=== PATIENT | female | born 1935 | race Caucasian/White ===

== ENCOUNTER 2016-10-07 18:06 | Inpatient (IN) | payer MEDICARE, BC ==
[~2016-10-07] VITALS: Ht 162.6 cm; Wt 76.7 kg
--- NOTE | ~2016-10-07 | CON ---
PATIENT'S NAME: RUBEN GIBBS [facility] AGE: 81 Y [address] ROOM: [place] [id number] LOCATION: GPCU ADMIT DATE: 10/07/2016 Consultation DISCHARGE DATE: FAMILY PHYSICIAN: PHYSICIAN, UNKNOWN ATTENDING PHYSICIAN: KELLY RAJPUT REFERRING PHYSICIAN: Tobi Lora MD CHIEF COMPLAINT: Chest pain. HISTORY OF PRESENT ILLNESS: This is an 81-year-old female who says that since last week the patient has been having bilateral jaw pain, she rated about 8/10, sometimes with exertion, sometimes at rest and would radiate to both shoulders down to both elbows and also to the substernal area. She graded about 8/10 intensity, on and off, associated with shortness of breath sometimes at rest and sometimes on exertion. These symptoms have been getting worse and today, the patient came to the ER for evaluation. Upon arrival, EKG showed ST-elevation in anteroseptal lateral leads and the patient was taken to the cardiac labor commissioner and already got one stent of drug-eluting stent to the LAD and currently is post stent and is in the PCU, doing well, without any chest pain or any complaints. Vital signs within normal limits. REVIEW OF SYSTEMS: As mentioned in the history of present illness. All other systems were reviewed and were negative except those mentioned in the history of present illness. PAST MEDICAL HISTORY: 1. Tachy-jose r syndrome, status post pacemaker implantation roughly 15 years ago. 2. Coronary artery disease, status post one drug-eluting stent placed in the past, roughly 15 years ago. 3. Hypertension. 4. Hyperlipidemia. ALLERGIES: SULFA WHICH CAUSES GI UPSET. HOME MEDICATIONS: Currently is being reconciled. PAST SURGICAL HISTORY: 1. Status post hysterectomy. 2. Status post cholecystectomy. 3. Status post hernia repair. PATIENT'S NAME: RUBEN GIBBS [facility] AGE: 81 Y [address] ROOM: [address] [address] LOCATION: GPCU ADMIT DATE: 10/07/2016 Consultation DISCHARGE DATE: FAMILY PHYSICIAN: PHYSICIAN, UNKNOWN ATTENDING PHYSICIAN: KELLY RAJPUT 4. Status post carpal tunnel syndrome repair. 5. Status post pacemaker implantation. 6. Status post one drug-eluting stent to the heart in the past. FAMILY HISTORY: Father at old age and he had a stroke and also hypertension. Mother also from old age, she also had stroke and also hypertension. SOCIAL HISTORY: The patient denies any alcohol or illegal drug or cigarette use. VITAL SIGNS: At the time of my dictation, temperature 98, blood pressure 130/80, heart rate 80, respirations 12, and saturation 99% on 1 L nasal cannula. GENERAL APPEARANCE: Alert and oriented x3, in no acute distress. HEENT: Pupils are equally round and reactive to light. Extraocular muscles are intact. Anicteric sclerae. Nasal turbinates are normal bilaterally. Moist oral mucosa. CARDIOVASCULAR: Regular rate and rhythm. Normal S1, S2. No murmur, no rubs, no gallops. RESPIRATORY: Clear to auscultation. No rales. No rhonchi. No crackles. No wheezing. ABDOMEN: Soft, nontender, and nondistended. Normal bowel sounds. No hepatosplenomegaly. EXTREMITIES: No edema in upper or lower extremities. NEUROLOGIC: Grossly nonfocal. SKIN: No ulcer, no rash, no cyanosis. MUSCULOSKELETAL: No joint pain. No muscle pain. Range of motion intact. LABORATORY DATA: CPK 908, troponin 50, CK-MB 72.2. All other labs are currently pending. IMAGING STUDIES: EKG on admission on October 07, 2016, at [address]-elevation in anteroseptal lateral leads, heart rate 85, sinus rhythm, QRS 84 msec, QTc 460 msec, and VA 184 msec. ASSESSMENT/PLAN: 1. ST elevation myocardial infarction in anteroseptal lateral leads: The patient is status post one drug-eluting stent to the left anterior descending artery. Currently, she is doing well, in the PCU. Continue current medication with aspirin, beta wendy, ARB, Lipitor, aspirin, Plavix, and abciximab, and nitroglycerin drip. Cycle cardiac enzymes. Repeat EKG in the morning and also repeat labs in the morning as well. Keep the potassium more than 4 and magnesium magnesium more than 2. PATIENT'S NAME: RUBEN GIBBS [facility] AGE: 81 Y [address] ROOM: [place] [address] LOCATION: GPCU ADMIT DATE: 10/07/2016 Consultation DISCHARGE DATE: FAMILY PHYSICIAN: PHYSICIAN, UNKNOWN ATTENDING PHYSICIAN: KELLY RAJPUT Further plan depends on clinical course. 2. Hypertension: Continue current medication as mentioned before. However, I will hold the amlodipine which is one of her home medications for now to give more room to the other blood pressure medication. Can always resume if the blood pressure tolerates. 3. History of hyperlipidemia: Currently, she is on Lipitor. 4. Coronary artery disease, status post 1 stent placed in the past and status post permanent pacemaker implantation for tachy-jose r syndrome 15 years ago. No active issue. The patient is status post one drug-eluting stent to the LAD. 5. Deep venous thrombosis prophylaxis: The patient is on abciximab. Time spent in care on the day of consultation, 35 minutes including chart review, interviewing the patient, examining the patient, and addressing all the questions and concerns the patient and family members had. I also went over the plan of care in detail with the patient and the nurse and the patient's family numbers. Half of the time was spent in chart review, interviewing, and physical examination. The other half of the total time spent was in counseling including addressing all the questions and concerns the patient and the family members had. Further plan will depend on clinical course. KELLY RAJPUT MD CC/jasminal /[id number] d: 10/08/16 0230 t: 10/16/16 0710, CONSULTATION REPORT
--- NOTE | ~2016-10-07 | CATH ---
Cardiac Diagnostic + PCI Report Demographics Patient Name BERNIE DE LA CRUZ Gender Female Date of 1935 Age 81 year(s) Patient Number [id number] Date of Study 10/07/2016 Visit Number [id number] Room Number G6316 [place] [id number] Ht 162.56 cm Wt 73.9 kg Referring Geno Britton MD Primary Physician Physician Performing Geno Britton MD Secondary Physician Physician Diagnostic Geno Britton MD Assisting Physician Physician Interventional Geno Britton MD Physician Technical Support Consultant Physician Findings and Conclusions Diagnostic Findings and Conclusion 1 vessel CAD ISR mid LAD Diagnostic Recommendations PCI LAD Interventional Findings and Conclusion 0.014 Prowater 2.75x15 Emerge 2.5x28 Promus to 2.6 with 0% residual Interventional Recommendations DAPT x 1 year Routine post perclose Risk factor modification Procedure Description The patient was brought to the diagnostic cardiac catheterization-EP laboratory in the fasting, non-sedated state. Informed consent was obtained in the written and verbal form after the risks and benefits were explained. The patient had no further questions and agreed to proceed. The planned puncture-incision site(s) were shaved and prepped with ChloraPrep and draped in the usual sterile manner. Conscious sedation, supplemental oxygen, and pain control medications were delivered by a registered nurse under physician guidance. Surface ECG rhythm, blood pressure measurement, and pulse oximetry were monitored throughout the procedure. Arterial access. The access site was infiltrated with lidocaine. The vessel was entered with the Seldinger technique. A sheath was advanced into the vessel and used for catheter placement. Selective left coronary angiography. A catheter was advanced into the left coronary vessel ostium under Fluoroscopic guidance. Contrast was injected by hand. Images were obtained in multiple projections. Selective right coronary angiography. A catheter was advanced into the right coronary vessel ostium under fluoroscopic guidance. Contrast was injected by hand. Images were obtained in multiple projections. Angioplasty and Stent Placement: A guiding catheter was used to intubate the vessel. A 0.14 wire was then used to cross the lesion. A balloon catheter was placed across the lesion and inflated. The balloon catheter was then removed. A Drug Eluting Stent was placed and inflated. Post placement angiograms were performed. Arterial artery hemostasis was achieved. The patient was transferred to a regular nursing floor via cart accompanied by a nurse. The patient left the laboratory in stable condition. Diagnostic Cath Status: Emergency Interventional Cath Status: Emergency Procedure Procedure Type Diagnostic procedure:Angiography:, Coronary Angios PCI procedure:Drug Eluting Coronary Stent:, LAD Indications: Abnormal ECG and Elevated troponin. Angiographic Findings Dominance: Right Cardiac Arteries and Lesion Findings LMCA: Normal (0% Stenosis).Large ok LAD: LAD medium. 100% instent restenosis Diag 1 medium Ariana is a previous stent on Mid LAD Mid subsection showing occlusion. Lesion on Mid LAD: Proximal subsection.100% stenosis 28 mm length reduced to 0%. Pre procedure TRUDY 0 flow was noted. Post Procedure TRUDY III flow was present. The guidewire cross was successful.The lesion was diagnosed as a high risk lesion.Culprit lesion. The lesion was previously treated with the following techniques: drug eluting stent. This is in-stentrestenosis. Devices used - Prowater Wire .014 x 180. Number of passes: 1. - Emerge Balloon 2.75 x 15. 5 inflation(s) to a max pressure of: 14 chey. - Promus Premier 2.5 x 28 Stent. 2 inflation(s) to a max pressure of: 18 chey. Lesion on Mid LAD: Distal subsection.80% stenosis reduced to 0%. Pre procedure TRUDY 0 flow was noted. Post Procedure TRUDY III flow was present. The guidewire cross was successful.The lesion was diagnosed as a high risk lesion.Culprit lesion. LCx: Normal (0% Stenosis).Circ medium ok OM 1 small, OM 2 large with proximal plaque RCA: RCA large with diffuse plaque PDA medium with mild plaque PL medium with mild plaque Coronary Tree Procedure Data Procedure Date Date: 10/07/2016Start: 07:16 PMEnd: 08:03 PM Entry Locations - Retrograde Percutaneous access was performed through the Right Femoral artery (Primary location). A 6 Fr sheath was inserted. Hemostasis was successfully obtained using Perclose ProGlide ([place]). Closure Comments: Perclose deployed by Anselmo. Procedure Medications Order and Administration + + + + + !Time !Medication !Dosage !Route ! + + + + + !10/07/2016 07:18 PM !Potassium Chloride !40 meq !I.V. ! + + + + + !10/07/2016 07:22 PM !Heparin (ACC_3) !2000 units !I.V. bolus ! + + + + + !10/07/2016 07:22 PM !Heparin (ACC_3) ! !I.V. drip ! + + + + + !10/07/2016 07:27 PM !Reopro (Abciximab) (ACC_7) !18.4 mg !I.V. bolus ! + + + + + !10/07/2016 07:28 PM !Reopro (Abciximab) (ACC_7) !10 mcg/min !I.V. bolus ! + + + + + !10/07/2016 07:31 PM !Nipride !50 mcg !I.C. ! + + + + + !10/07/2016 07:36 PM !Nipride !100 mcg !I.C. ! + + + + + !10/07/2016 07:37 PM !Nipride !100 mcg !I.C. ! + + + + + !10/07/2016 07:39 PM !Nipride !100 mcg !I.C. ! + + + + + !10/07/2016 07:40 PM !Fentanyl !25 mcg !I.V. ! + + + + + !10/07/2016 07:47 PM !Nipride !100 mcg !I.C. ! + + + + 10/07/2016 07:49 PM !Nitroglycerin !5 mcg/min !I.V. drip ! + + + + 10/07/2016 07:49 PM !Plavix (ACC_8) !150 mg !P.O. ! + + + + + 10/07/2016 07:51 PM !Oxygen ! !NC ! + + + + + 10/07/2016 07:57 PM !Fentanyl !25 mcg !I.V. ! + + + + + Devices Used - A6 Fr. BS JL 4 Diag. Catheterwas used for:Left coronary angiography. - A6 Fr. BS JR 4 Diag. Catheterwas used for:Right coronary angiography. - A6 Fr. XBLAD 3.5 Guide Catheterwas used for:LAD Intervention. Contrast Material - Isovue 116296 ml Fluoroscopy Time: Diagnostic: 13:24 minutes. Total: 13:24 minutes. Fluoroscopy Dose: Diagnostic: 2623 mGy. Total: 2623 mGy. Estimated Blood Loss: 5 ml. Additional [facility] PCI Information PCI Indication:Immediate PCI for STEMI. Medical History Performed Procedures and Imaging Results - No [facility] stress or imaging studies were performed. Allergies - Sulfa. - Other:(Lactose, sulfonamidos). - Other:(Eggs, [place]). Risk Factors The patient risk factors include:prior PCI on 11/03/2002;hypertension, family history of premature CAD, last creatinine: 0.9 mg/dl, creatinine clearance: 57.19 ml/min and dyslipidemia. Admission Data Admission Date: 10/07/2016 Admission Time: 07:01 PM Admit Source: [place] acute care facility Insurance Payors: Medicare. Admission Medications + +------+------+ + + + + !Medication !Dosage!Times !Last !Last !Administered !Comments ! ! ! !Per !Delivery !Delivery ! ! ! ! ! !Day !Date !Time ! ! ! + +------+------+ + + + + !ANGELITA ! ! ! ! !Yes ! ! !Inhibitor ! ! ! ! ! ! ! !(any) ! ! ! ! ! ! ! + +------+------+ + + + + !ARB (any) ! ! ! ! !Yes ! ! + +------+------+ + + + + !Beta Sylvie! ! ! ! !Yes ! ! !(any) ! ! ! ! ! ! ! + +------+------+ + + + + !Statin (any)! ! ! ! !Yes ! ! + +------+------+ + + + + Clinical Evaluation Leading to Procedure - The patient's CAD presentation was assessed as: STEMI.The symptom onset was first noted on 10/05/2016 12:01 AM(time was estimated). - Anti-anginal medications were prescribed during the past two weeks. The medication is: Beta Blockers. Hemodynamics Condition: Rest Estimated: Heart Rate: 79 bpm Pressures (mmHg) +-----+ + !Site !Pressure ! +-----+ + !AO !132/69 (96) ! +-----+ + Shunts Oxygen Values O2 Capacity 213.52 Discharge Data Discharge Date: 10/09/2016 Hospital Status: Inpatient Signatures dtt: Tobi Lora (cardio) dtd: 10/07/161915 Physician Self Edit
--- NOTE | ~2016-10-07 | ECHO ---
Transthoracic Echocardiography Report (TTE) Demographics Patient Name RUBEN GIBBS Date of Study 10/09/2016 Patient Number [id number] Visit Number [id number] Date of 1935 Room Number G6316 Gender Female Number Age 81 year(s) Referring Hari Industrial Nurse Xochitl Dong RVT Physician Yudith Rodríguez MD Physician Interpreting Geno Brittno MD Equal Employment Opportunity Officer Physician Supervising Ordering Physician Hari Zurita MD/MLP Nurse Stress Pediatric Cns Conclusions Contractility Score Summary Normal Left Ventricular contractility was noted. Summary Technically difficult exam. The estimated left ventricular ejection fraction is 65-70%. Moderate concentric left ventricular hypertrophy. The right atrium is mildly dilated. IVC not visualized due to poor subcostal window. Mild mitral annular calcification. Mild mitral regurgitation by color Doppler. Trivial tricuspid regurgitation by color Doppler. Trivial pulmonic valve regurgitation by color Doppler. Possible trivial global pericardial effusion. Procedure Type of Study TTE procedure:2D Echocardiogram. Procedure Date Date: 10/09/2016 Start: 08:49 AM Study Location: Inpatient Portable Technical Quality: Poor visualization due to poor acoustical window. Indications:Chest pain. Appropriate Use Criteria: 9 Patient Status: Routine HR: 73 bpm BP: 124/60 mmHg Allergies - Sulfa. - Other:(Lactose, sulfonamidos). - Other:(Eggs, [place]). M-Mode/2D Measurements LV Diastolic Dimension: 3.63 cm LV Systolic Dimension: 1.94 cm LV Septum Diastolic: 2.14 cm LV PW Diastolic: 1.55 cm AO Root Dimension: 2.1 cm Cardiac Output: 4.72 l/min AV Cusp Separation: 1.4 cm RV Diastolic Dimension: 3.02 cm LVOT: 2 cm LVOT VTI: 20.6 cm LV Stroke volume: 64.68 ml TDI-S': 16.1 cm/s Doppler Measurements AV Peak Velocity: 1.48 m/s MV Peak E-Wave: 0.6 m/s AV Peak Gradient: 8.76 mmHg MV Peak A-Wave: 0.89 m/s AV Mean Gradient: 4 mmHg MV E/A Ratio: 0.67 LVOT Peak Velocity: 1.04 m/s MV P1/2t: 52 msec TR Gradient:18.66 mmHg PV Peak Velocity: 0.92 m/s PV Peak Gradient: 3.39 mmHg E' Septal Velocity: 0.05 m/s A' Septal Velocity: 0.1 m/s E' Lateral Velocity: 0.06 m/s A' Lateral Velocity: 0.11 m/s Findings Left Ventricle Moderate concentric left ventricular hypertrophy. Mild to moderate concentric left ventricular hypertrophy. Right Ventricle Normal right ventricle structure and function. Left Atrium Normal left atrial size. Right Atrium The right atrium is mildly dilated. IVC not visualized due to poor subcostal window. Mitral Valve Mild mitral annular calcification. Mild mitral regurgitation by color Doppler. Aortic Valve Normal aortic valve structure and function. Tricuspid Valve Trivial tricuspid regurgitation by color Doppler. Pulmonic Valve Trivial pulmonic valve regurgitation by color Doppler. Pericardial Effusion No evidence of pericardial effusion. Miscellaneous Visualized portions of the aortic root and ascending aorta appear normal in size. Pleural Effusion No evidence of pleural effusion. Contractility Score LV regional wall motion:(0-Non visualized 1-Normal 2-Hypokinesis 3-Akinesis 4-Dyskinesis 5-Aneurysm) Signature dtt: Tobi Lora (cardio) dtd: 10/09/16 0849 Physician Self Edit
[2016-10-07] MEDS ORDERED: ALPHAGAN P OPHTH (21:42)
[2016-10-07] MEDS ORDERED: NORVASC2.5 MG PO (21:44)
[2016-10-07] MEDS ORDERED: TOPROL XL100 MG PO ×2 (21:45→21:46)
[2016-10-07] MEDS ORDERED: LIPITOR20 M1 PO (21:45)
[2016-10-07] MEDS ORDERED: OCUVITE SOFTGE1 EACH PO (21:47)
[2016-10-07] MEDS ORDERED: VALSARTAN-HCTZ1 EAC2 PO (21:48)
[2016-10-07] MEDS ORDERED: XALATAN2.5 ML OPHTH (21:49)
[2016-10-07] MEDS ORDERED: VIACTIV SOFT C1 EACH PO (21:49)
[2016-10-07] MEDS ORDERED: ALEVE SINUS PO (21:51)
[2016-10-07 23:50] LABS: BASOPHIL % 0.3 %; EOSINOPHIL % 0.1 %; HEMATOCRIT 42.9 % (30.0-46.0); HEMOGLOBIN 14.3 g/dL (10.0-15.0); IMMATURE GRANULOCYTE % 0.3 %; LYMPHOCYTE # 2.2 K/uL (0.8-4.0); LYMPHOCYTE % 16.6 %; MCH 30.5 pg (27.0-34.0); MCHC 33.3 gm/dL (32.0-36.5); MCV 91.5 fl (83.0-98.0); MONOCYTE # 1.1 K/uL (0.0-1.0); MONOCYTE % 8.5 %; MPV 11.9 fl (9.4-12.4); NEUTROPHIL # (ANC) 9.6 K/uL (1.8-7.8); NEUTROPHIL % 74.2 %; NRBC % 0 /100WBC (0-0.00); RBC 4.69 M/uL (3.00-5.00); RDW-CV 13.8 % (11.9-14.6)
[2016-10-07 23:51] LABS: PLATELET COUNT 134 K/uL (150-450)
[2016-10-07 23:58] LABS: INR - (THERAPEUTIC) 1.06 (0.92-1.07); PROTIME 11.1 SECONDS (9.8-11.4)
[2016-10-08 00:03] LABS: ALBUMIN 3.1 gm/dL (3.5-5.0); ANION GAP 15.5 (10.0-19.0); CALCIUM 8.3 mg/dL (8.5-10.5); CREATININE 0.9 mg/dL (0.5-1.1); MAGNESIUM 2.1 mg/dL (1.8-2.6); POTASSIUM 5.5 mMol/L (3.7-5.1); TOTAL BILIRUBIN 1.3 mg/dL (0.0-1.5); TOTAL PROTEIN 6.4 g/dL (6.0-8.4)
[2016-10-08 02:38] LABS: BASOPHIL % 0.4 %; EOSINOPHIL % 0.3 %; HEMATOCRIT 39.1 % (30.0-46.0); HEMOGLOBIN 13.3 g/dL (10.0-15.0); IMMATURE GRANULOCYTE % 0.4 %; LYMPHOCYTE % 17.8 %; MCH 30.7 pg (27.0-34.0); MCV 90.3 fl (83.0-98.0); MONOCYTE # 1.3 K/uL (0.0-1.0); MONOCYTE % 11.9 %; MPV 11.5 fl (9.4-12.4); NEUTROPHIL # (ANC) 7.7 K/uL (1.8-7.8); NEUTROPHIL % 69.2 %; NRBC % 0 /100WBC (0-0.00); PLATELET COUNT 131 K/uL (150-450); RBC 4.33 M/uL (3.00-5.00); RDW-CV 13.7 % (11.9-14.6); WBC 11.1 K/uL (4.0-11.0)
[2016-10-08 03:03] LABS: ALBUMIN 2.7 gm/dL (3.5-5.0); ALK PHOS 73 IU/L (33-138); ALT 43 IU/L (12-78); ANION GAP 14.8 (10.0-19.0); AST 181 IU/L (10-40); BLOOD UREA NITROGEN 21 mg/dL (6-24); CALCIUM 8.2 mg/dL (8.5-10.5); CHLORIDE 112 mMol/L (96-110); CO2 19 mMol/L (22-32); CREATININE 0.7 mg/dL (0.5-1.1); ESTIMATED GFR (MDRD EQUATION) > 60; SODIUM 142 mMol/L (135-145); TOTAL BILIRUBIN 1.2 mg/dL (0.0-1.5); TOTAL PROTEIN 5.7 g/dL (6.0-8.4)
[2016-10-08 03:04] LABS: POTASSIUM 3.8 mMol/L (3.7-5.1)
--- NOTE | 2016-10-08 04:55 | NUR ---
Significant Event: Patient is alert/oriented x3. Vital signs are stable. On nitro drip at 5 mcg/hr. Reopro at 10 mcg, to be turned off at 0730. Stent to LAD, was 100% occluded. Right groin dressed with gauze and tegaderm. Gauze is saturated since site oozed due to Reopro drip but has not oozed past the gauze. Site has been soft and non-tender throughout the night. CSM is WNL. Patient has denied any pain/discomfort. Pena in place with 850 mL UOP. Cardiac enzymes trending down. Follow up: Continue to monitor per plan of care. EKG this AM.
--- NOTE | 2016-10-08 17:12 | NUR ---
Significant Event: Alert and oriented X 3. Room air. SBP 100's and 110's. HR 60's and 70's. Up with 1 assist. Ambulated jennings with TA X 1. Pena pulled with 800 ml out. Denies any pain. Heart cath radial approach. Dressing clean dry and intact. Surrounding area soft no bruising. Pleasant and cooperative with cares. Follow up: EKG and Echo tomorrow morning.
--- NOTE | 2016-10-09 04:41 | NUR ---
Significant events: Pt A/Ox3. VSS. No complaints of pain. R) groin heart cath site CDI. Up in jennings x1. Possible DC today after echo and ekg.
[2016-10-09 04:55] LABS: BASOPHIL # 0.1 K/uL (0.0-0.2); BASOPHIL % 0.8 %; EOSINOPHIL # 0.2 K/uL (0.0-0.5); EOSINOPHIL % 2.5 %; HEMATOCRIT 38.8 % (30.0-46.0); HEMOGLOBIN 12.9 g/dL (10.0-15.0); IMMATURE GRANULOCYTE % 0.3 %; LYMPHOCYTE % 22.7 %; MCH 30.7 pg (27.0-34.0); MCHC 33.2 gm/dL (32.0-36.5); MCV 92.4 fl (83.0-98.0); MONOCYTE # 1.1 K/uL (0.0-1.0); MONOCYTE % 11.9 %; MPV 11.2 fl (9.4-12.4); NEUTROPHIL # (ANC) 5.5 K/uL (1.8-7.8); NEUTROPHIL % 61.8 %; NRBC % 0 /100WBC (0-0.00); PLATELET COUNT 145 K/uL (150-450); RDW-CV 13.7 % (11.9-14.6); WBC 8.9 K/uL (4.0-11.0)
[2016-10-09 05:10] LABS: ANION GAP 13.7 (10.0-19.0); BLOOD UREA NITROGEN 19 mg/dL (6-24); CALCIUM 8.1 mg/dL (8.5-10.5); CHLORIDE 111 mMol/L (96-110); CO2 22 mMol/L (22-32); CREATININE 0.7 mg/dL (0.5-1.1); ESTIMATED GFR (MDRD EQUATION) > 60; MAGNESIUM 2.1 mg/dL (1.8-2.6); POTASSIUM 3.7 mMol/L (3.7-5.1); SODIUM 143 mMol/L (135-145)
[2016-10-09] MEDS ORDERED: ASPIRIN325 MG PO (14:14)
[2016-10-09] MEDS ORDERED: PLAVIX75 MG PO (14:17)
[2016-10-09] MEDS ORDERED: ISORDIL10 MG PO (14:18)
[2016-10-09] MEDS ORDERED: K-TAB 10MEQ10 MEQ PO (14:23)
--- NOTE | 2016-10-09 15:45 | NUR ---
Significant Event: PT A&O x3. VSS, on room air. Dressing changed to R)groin-bandaid applied. PT ambulates with SBA. Denies pain. Bilateral IV's dc'd. Echo done this AM. Dismissal instructions/prescriptions given to PT/spouse, voiced understanding. PT wheeled to front lobby and dismissed to home with family. Follow up:
--- NOTE | 2016-10-09 16:27 | NUR ---
Introduced self and role of care management to pt and her family. She states she is indepnedent with cares and hoping to go home today but waiting on the md. AT this time denies any post discharge needs.
== END 2016-10-09 15:30 | disposition disaster alternative care site (69) | DRG 247 ==
LOC: GPCU 18:06
PROVIDERS: Hospitalist; Internal Medicine Interventional Cardiology; ADMIT Internal Medicine
DX: I21.3 ST elevation (STEMI) myocardial infarction of unspecified site (principal); E78.5 Hyperlipidemia, unspecified; E87.6 Hypokalemia; Z23 Encounter for immunization; Z95.0 Presence of cardiac pacemaker; Z95.5 Presence of coronary angioplasty implant and graft
CPT/HCPCS: C1725; C1760; C1769; C1874; C1887; C9606; G0009; J0130; J0583; J1644; J2370; J3010; J3480; J7030; J7050; J7060

== ENCOUNTER → 2016-10-07 | Outpatient (CLI) | payer MEDICARE, OTHER, BC ==
[~2016-10-07] MED LIST: ALEVE SINUS PO; ALPHAGAN P OPHTH; ASPIRIN325 MG PO; ISORDIL10 MG PO; K-TAB 10MEQ10 MEQ PO; LIPITOR20 M1 PO; NORVASC2.5 MG PO; OCUVITE SOFTGE1 EACH PO; PLAVIX75 MG PO; TOPROL XL100 MG PO; VALSARTAN-HCTZ1 EAC2 PO; VIACTIV SOFT C1 EACH PO; XALATAN2.5 ML OPHTH
--- NOTE | ~2016-10-07 | CON ---
PATIENT'S NAME: RUBEN GIBBS [facility] AGE: 81 Y [address] ROOM: [place] [address] LOCATION: GAIR ADMIT DATE: 10/07/2016 Consultation DISCHARGE DATE: FAMILY PHYSICIAN: PHYSICIAN, UNKNOWN ATTENDING PHYSICIAN: SHREYA ELIZABETH DATE OF CONSULTATION: 10/07/2016 REASON FOR CONSULT: ST-elevation myocardial infarction. HISTORY OF PRESENT ILLNESS: This is an 81-year-old female, well known to Dr. Ponce with a history of coronary artery disease with stents placed to the LAD in 2002 as well as sick sinus syndrome post dual chamber [employer]. Rogerio pacemaker. She was last seen in the clinic in 2016 and had been doing very well until this past week when she started experiencing bilateral jaw discomfort with radiation down both upper arms with any kind of exertion. She was also complaining of shoulder pain and elbow discomfort. At times, she did experience some substernal discomfort. On the day of admission, she became extremely short of breath with exertion and had those symptoms as described above. She went to the emergency room in [place] and the initial EKG showed an ST elevation in the anterior septal region. She was then transferred to [facility] and underwent a left heart catheterization emergently with stents placed to the LAD. She had not had any problems with orthopnea or PND, but she had been more fatigued. She denied presyncope or syncopal episodes. PAST MEDICAL HISTORY: 1. Tachy-jose r syndrome, post dual chamber [employer]. Rogerio pacemaker. 2. Coronary artery disease. 3. Dyslipidemia. 4. Symptomatic venous insufficiency post left greater saphenous vein radiofrequency ablation and symptomatic PVCs. 5. Paroxysmal atrial fibrillation noted on the pacemaker report. 6. Elevated RVSP 37 mmHg. Last echo with normal overnight trend oximetry. 08/09/2015. PAST SURGICAL HISTORY: 1. Left heart catheterization, 11/03/2002, with PTCA stent to the LAD. 2. 03/09/2003, tachy-jose r syndrome post placement of dual chamber pacemaker St. Rogerio. 3. Left heart catheterization, 04/28/2003, patent stent to the LAD, small diagonal branch not amenable to PTCI. Medical therapy. 4. Abdominal aortogram with bilateral selective renal arteriography on 09/11/2005, showing single renal arteries without obstructive disease. PATIENT'S NAME: [facility]BS, [facility] AGE: 81 Y [address] ROOM: [place] [address] LOCATION: GAIR ADMIT DATE: 10/07/2016 Consultation DISCHARGE DATE: FAMILY PHYSICIAN: PHYSICIAN, UNKNOWN ATTENDING PHYSICIAN: SHREYA ELIZABETH 5. 03/06/2007, left heart catheterization. RCA 50%, LCX 40%, LAD 50% narrowing previously placed LAD stent. Medical therapy. 6. Left heart catheterization, 11/07/2009, one-vessel coronary artery disease, patent stent to the LAD. Medical therapy. 7. 11/20/2010, left heart catheterization, one-vessel coronary artery disease, patent stent noted to the left anterior descending artery, single renal artery supply bilaterally, elevated left ventricular end- diastolic pressures consistent with diastolic dysfunction. Medical therapy. 8. 12/12/2010. Dual chamber St. Rogerio pacemaker placed. 9. 09/24/2011. Radiofrequency ablation of the left greater saphenous vein. 10. Hernia repair x2. 11. Sinus surgery repair x2. 12. Bile duct surgery. 13. Hysterectomy with BSO. 14. Bilateral cataract removal. 15. Cholecystectomy. 16. Right RTC. 17. Right ORIF. ALLERGIES: SULFA, WEEDS, AND GRASSES. HOME MEDICATIONS: 1. Amlodipine 2.5 mg daily. 2. Atorvastatin 20 mg every night. 3. Brimonidine tartrate 0.15% ophthalmic drops to each eye daily. 4. Viactiv soft chew one tablet daily. 5. Xalatan 2.5 mL one drop every night. 6. Metoprolol succinate 100 mg tablets, takes half of 100 mg at bedtime and 100 mg in the morning. 7. Naproxen one tablet p.r.n. 8. Valsartan/hydrochlorothiazide 320 one tablet every day. 9. [place]-3 Ocuvite softgel one tablet b.i.d. FAMILY HISTORY: Mother had a stroke. Father also had a stroke. She has had two brothers with MIs and they are both . She has a daughter with Hodgkin disease and pancreatic cancer. SOCIAL HISTORY: She is a lifelong nonsmoker. She does not use alcohol. REVIEW OF SYSTEMS: GENERAL: She has been more fatigued. PATIENT'S NAME: RUBEN GIBBS [facility] AGE: 81 Y [address] ROOM: [place], [place] [address] LOCATION: GAIR ADMIT DATE: 10/07/2016 Consultation DISCHARGE DATE: FAMILY PHYSICIAN: PHYSICIAN, UNKNOWN ATTENDING PHYSICIAN: SHREYA ELIZABETH HEAD: No history of headache. EYES: She does have glaucoma and has had cataract surgery. EARS: No problems with hearing. NOSE: No epistaxis or rhinorrhea. MOUTH: No gingival bleeding. THROAT: Denies sore throat, hoarseness, or difficulty swallowing. PULMONARY: Denies cough or hemoptysis. GI: Negative for nausea, vomiting, or diarrhea. No melena or hematochezia. As a child, she did have hepatitis and jaundice. : Negative for urinary frequency or urgency. No problems with dribbling or hematuria. MUSCULOSKELETAL: No complaints of arthralgias or myalgias. NEUROLOGIC: Denies numbness or tingling or feelings of off-balance. PHYSICAL EXAMINATION: VITAL SIGNS: She is 5 feet 4 inches. She weighs 164 pounds. Blood pressure is 128/73, heart rate is 80, respirations are 17, and temperature is 98.4. GENERAL: She is alert and oriented. SKIN: Warm, dry, and pink. HEENT: Pupils are equal, round, and react briskly. NECK: Soft and supple. No lymphadenopathy or thyromegaly. JVD is flat. LUNGS: Sounds are clear without evidence of wheezes, rales, or rhonchi. CVS: Regular with normal S1 and S2. ABDOMEN: Soft. Bowel sounds are present. EXTREMITIES: No peripheral edema. Distal pulses are 2+/4. ASSESSMENT: 1. ST-elevation myocardial infarction. She will be taken to the label rewinder directly for emergent heart catheterization. 2. Dyslipidemia. We will continue statin therapy postop. 3. Hypertension. We will continue with her current home medications at this time. The assessment and plan, history of present illness, and physical exam are per Dr. Ponce. We would like to thank Dr. Mir for allowing us to participate in the patient's care. JAMARCUS TRIPLETT APRN FOR LEIA PONCE MD TGP/jasminal /[id number] d: 10/09/16 1645 t: 10/12/16 1159, CONSULTATION REPORT
== END | disposition disaster alternative care site (69) ==
LOC: GAIR 18:39
DX: I21.09 ST elevation (STEMI) myocardial infarction involving other coronary artery of anterior wall (principal); E78.5 Hyperlipidemia, unspecified; I10 Essential (primary) hypertension; M79.602 Pain in left arm; M79.601 Pain in right arm; H92.03 Otalgia, bilateral; R07.89 Other chest pain; R68.84 Jaw pain; R42 Dizziness and giddiness; Z95.0 Presence of cardiac pacemaker; Z79.1 Long term (current) use of non-steroidal anti-inflammatories (NSAID); Z79.899 Other long term (current) drug therapy; Z88.2 Allergy status to sulfonamides
CPT/HCPCS: A0422; A0431; A0436